=== PATIENT | male | born 1965 | race Caucasian/White ===

== ENCOUNTER 2019-09-01 15:27 | Emergency (ER) | payer OTHER, SELFPAY ==
[2019-09-01 15:29] VITALS: BP 122/83; PULSE 84; RESP 18; TEMP 35.8; O2SAT 99
[2019-09-01 15:42] LABS: Bacteria Urine None Seen
[2019-09-01 15:48] LABS: Appearance Urine UA CLEAR; Bilirubin Urine UA NEGATIVE (NEGATIVE); Color Urine UA YELLOW; Glucose Urine UA NEGATIVE (Negative); Ketones Urine UA NEGATIVE (NEGATIVE); Leukocyte Esterase Urine UA NEGATIVE (NEGATIVE); Nitrite Urine UA NEGATIVE (Negative); Occult Blood Urine UA 3+ (Negative); Protein Urine UA NEGATIVE (Negative); Specific Gravity Urine UA <=1.005 (1.000-1.035); Urobilinogen Urine UA 0.2 E.U./dL (0.2)
[2019-09-01 15:55] LABS: Culture Indicated Urine Cult Not Indicated; RBC Urine 30-100/HPF (0-5/HPF); Squamous Epithelial Cell Urine 0-1 /HPF (0-5/HPF); WBC Urine 0-1/HPF (0-5/HPF)
--- NOTE | 2019-09-01 17:03 | DI.CT.S_ITS ---
PROCEDURE: CT KIDNEY URETER BLADDER (KUB) INDICATIONS: RIGHT SIDE PAIN TECHNIQUE: Noncontrast 5 mm thick sections acquired from the diaphragms to the symphysis. 5 mm thick coronal and sagittal reformats were then performed. For radiation dose reduction, the following was used: automated exposure control, adjustment of mA and/or kV according to patient size. COMPARISON: None. FINDINGS: Image quality: Excellent. Lung bases: Lung bases are clear. Heart size is normal. Urinary system: There is a 2 mm stone at the right ureteral vesicle junction. There is trace right pelviectasis. Several nonobstructing right renal calculi measuring up to 4 mm. Tiny 1 mm left renal calculi are suspected. No left hydronephrosis. Both kidneys are normal in size. Mild right perinephric fat stranding. Both ureters appear non-dilated throughout their expected courses. Bladder wall is thickened. There is stranding around bladder consistent with cystitis. Prostate is enlarged. Other solid organs: Liver is normal in size. Gallbladder is normal. Pancreas is normal in contours. Spleen is normal in size. No adrenal nodules. Peritoneum and bowel: Appendix is not visualized. No secondary signs for acute appendicitis. Unenhanced bowel loops demonstrate normal wall thickness and caliber. No free fluid or air. Nodes and vessels: No retroperitoneal or mesenteric adenopathy by size criteria. Aorta and inferior vena cava are normal in caliber. Abdominal wall: No ventral hernias. Pelvis: No free pelvic fluid. No inguinal hernias or adenopathy. Multiple calcific densities in pelvis are compatible with pelvic phleboliths. Bones: No suspicious bony lesions. No vertebral body compression fractures. IMPRESSION: 1. A 2 mm stone at the left UVJ. There is trace right renal pelviectasis and mild right perinephric stranding. 2. Nephrolithiasis with small nobstructive stones bilaterally. 3. Thickening of bladder and stranding around bladder consistent with cystitis. 4. Enlarged prostate. Dictated by: Salvador Lowe M.D. on 09/01/2019 at 17:57 Approved by: Salvador Lowe M.D. on 09/01/2019 at 18:02
[2019-09-01] MEDS: KETOROLAC 60 MG/2 ML VIAL 30 MG IM (17:20)
[2019-09-01] MEDS: ACETAMINOPHEN 325 MG TABLET 650 MG PO (17:20)
--- NOTE | 2019-09-01 18:16 | ED_ITS ---
HPI - Male Genitourinary <NICHO Doshi - Last Filed: 09/02/19 01:26> General Chief complaint: Urogenital-Male Stated complaint: UNABLE TO PEE Time Seen by Provider: 09/01/19 16:50 Source: patient Mode of arrival: Ambulatory Limitations: no limitations History of Present Illness HPI Narrative: This is a 53-year-old male, prior smoker, who presents to ED with urinary frequency with small amount, urinary burning sensation, and right side/flank spasming discomfort for last 1.5 day. Patient states he voids every 5-10 minutes. Patient denies fever, chills, nausea or vomiting. Patient denies scrotal pain but reports feel something in scrotal area with urination. Patient denies penile discharge, concerns for STIs. Patient denies history of kidney stone, enlarged prostate, diabetes. Related Data Previous Rx's Medication Instructions Recorded hydrocodone-acetaminophen [[place]] 1 tab PO Q8H PRN #7 tab 09/01/19 sulfamethoxazole-trimethoprim 1 tab PO DAILY 7 Days tab 09/01/19 Review of Systems <NICHO Doshi - Last Filed: 09/02/19 01:26> Review of Systems Narrative: General: Denies fever, chills, fatigue, malaise, sweats. HEENT: Denies sinus pain, ear pain, sore throat, difficulty swallowing, dizziness. Respiratory: Denies dyspnea, cough, wheezing, hemoptysis, sputum. Cardiovascular: Denies chest pain, palpitations, orthopnea, edema. Gastrointestinal: Denies nausea, vomiting, abdominal pain, diarrhea, constipation, melena. : See HPI Musculoskeletal: Denies weakness, joint pain or bony pain. Skin: Denies rash, skin lesions, or other. Neurologic: Denies weakness, headache, numbness, change in speech, confusion, seizures, incoordination. Psychiatric: No concerning psychosocial issues. 12-point review of systems is negative except for those stated above. Patient History <NICHO Doshi - Last Filed: 09/02/19 01:26> Medical History (Updated 09/02/19 @ 01:20 by NICHO Doshi) No significant past medical history (Acute) Surgical History No pertinent past surgical history (Acute) Social History (Updated 09/02/19 @ 01:20 by NICHO Doshi) Smoking Status: Former smoker Exam <NICHO Doshi - Last Filed: 09/02/19 01:26> Narrative Exam Narrative: GEN: Alert, oriented x 3, well appearing and nourished, and in no acute distress. Head: Normal cephalic, atraumatic. No scalp or temporal tenderness, palpable mass or rash. EYES: Pupils are equal, round, and reactive to light and accommodation. Extraocular muscles are intact bilaterally. There is no subconjunctival hemorrhage, exudate and sclera non-icteric. ENT: Bilateral auditory canals and tympanic membranes clear. Hearing grossly intact. Nose without bleeding, purulent discharge or deviation. Facial sinuses nontender to palpate. Mucous membrane moist, no mucosal lesion. Throat without erythema, tonsillar hypertrophy or exudate. Uvula in midline, airway patent. Neck: Trachea in midline. No JVD, non-tender without lymphadenopathy. No masses or thyroid megaly. Supple, non-tender and no meningeal signs. CARDIAC: Normal regular rate and rhythm without murmurs, gallops, or rubs. No chest wall tenderness. No peripheral edema, cyanosis or pallor. Capillary refill is less than 2 seconds. RESPIRATORY: Lungs are clear to auscultate bilaterally. No cough, wheezes, rales, or rhonchi. No stridor, respiratory distress, increase work of breathing, or accessary muscle used. ABD: Abdomen soft, nontender and non-distended. No guarding or rebound tenderness to palpate. Bowel sounds are normal in all 4 quadrants. There is no palpable masses or organomegaly. EXT: Full painless ROM of all extremities with no loss of sensation, strength, effusion or edema. SKIN: Warm, dry, normal color for patient. No erythema, lesions or rash over visible areas. BACK: Nontender without deformity or crepitance. No flank tenderness. NEUROLOGICAL: Alert and oriented to place, time and person. Sensation and motor function intact bilaterally. No facial droops, dysphasia. PSYCHIATRIC: Good judgement and reason, without hallucinations, abnormal affect or abnormal behaviors during the examination. Initial Vital Signs Initial Vital Signs: Vital Signs Temperature 96.5 F L 09/01/19 15:29 Pulse Rate 84 09/01/19 15:29 Respiratory Rate 18 09/01/19 15:29 Blood Pressure 122/83 09/01/19 15:29 Pulse Oximetry 99 09/01/19 15:29 <Kelli Nails MD - Last Filed: 09/02/19 18:41> Initial Vital Signs Initial Vital Signs: Vital Signs Temperature 96.5 F L 09/01/19 15:29 Pulse Rate 84 09/01/19 15:29 Respiratory Rate 18 09/01/19 15:29 Blood Pressure 122/83 09/01/19 15:29 Pulse Oximetry 99 09/01/19 15:29 Scores <NICHO Doshi - Last Filed: 09/02/19 01:26> GCS Marisela coma scale eye opening: Spontaneous [place] coma scale verbal response: Orientated Marisela coma scale motor response: Obey commands [place] coma scale total score: 15 Course <NICHO Doshi - Last Filed: 09/02/19 01:26> Orders Ordered: Discontinued Medications Acetaminophen (Tylenol) 650 mg PO NOW ONE Stop: 09/01/19 17:05 Last Admin: 09/01/19 17:20 Dose: 650 mg Documented by: LUIS Ketorolac Tromethamine (Toradol) 30 mg IM NOW ONE Stop: 09/01/19 17:05 Last Admin: 09/01/19 17:20 Dose: 30 mg Documented by: LUIS Trimethoprim/Sulfamethoxazole (Bactrim Ds) 1 tab PO NOW ONE Stop: 09/01/19 18:32 Last Admin: 09/01/19 19:00 Dose: 1 tab Documented by: LUIS Vital Signs Vital signs: Vital Signs - 8 hr 09/01/19 15:29 Temperature 96.5 F L Pulse Rate 84 Respiratory Rate 18 Blood Pressure 122/83 Pulse Oximetry 99 <Kelli Nails MD - Last Filed: 09/02/19 18:41> Orders Ordered: Discontinued Medications Acetaminophen (Tylenol) 650 mg PO NOW ONE Stop: 09/01/19 17:05 Last Admin: 09/01/19 17:20 Dose: 650 mg Documented by: LUIS Ketorolac Tromethamine (Toradol) 30 mg IM NOW ONE Stop: 09/01/19 17:05 Last Admin: 09/01/19 17:20 Dose: 30 mg Documented by: LUIS Trimethoprim/Sulfamethoxazole (Bactrim Ds) 1 tab PO NOW ONE Stop: 09/01/19 18:32 Last Admin: 09/01/19 19:00 Dose: 1 tab Documented by: LUIS Vital Signs Vital signs: Vital Signs - 8 hr 09/01/19 15:29 Temperature 96.5 F L Pulse Rate 84 Respiratory Rate 18 Blood Pressure 122/83 Pulse Oximetry 99 MDM - Male Genitourinary <NICHO Doshi - Last Filed: 09/02/19 01:26> Differential Diagnosis Differential diagnosis: Likely urinary tract infection, acute retention of urine and other (Kidney stone, enlarged prostate) Medical Records Attestation: I reviewed the patient's medical records. Lab Data Attestation: I reviewed the patient's lab results. Labs: Lab Results 09/01/19 Range/Units 15:34 Urine Color Yellow Urine Appearance Clear Urine pH 6.0 (4.5-8.0) Ur Specific [place] <=1.005 (1.000-1.035) Urine Protein Negative (Negative) Urine Glucose (UA) Negative (Negative) g/dL Urine Ketones Negative (NEGATIVE) Urine Occult Blood 3+ H (Negative) Urine Nitrate Negative (Negative) Urine Bilirubin Negative (NEGATIVE) Urine Urobilinogen 0.2 (0.2) E.U./dL Ur Leukocyte Esterase Negative (NEGATIVE) Urine RBC 30-100/hpf H (0-5/HPF) Urine WBC 0-1/hpf (0-5/HPF) Ur Squamous Epith Cells 0-1 /hpf (0-5/HPF) Urine Bacteria None seen (None) Ur Culture Indicated? Cult not indicated Imaging Data CT-KUB: Radiologist's impression: [address] [address] [address] Scan Report Signed Patient: Kris Vazquez#: [id number] : 1965Acct:[id number] Age/Sex: 53 / MDate of Service: 09/01/19 Loc: ED Accession Number: [id number] Procedure: CT kidney ureter bladder (KUB) Ordering Provider: Mumtaz Ritchie PROCEDURE: CT KIDNEY URETER BLADDER (KUB) INDICATIONS: RIGHT SIDE PAIN TECHNIQUE: Noncontrast 5 mm thick sections acquired from the diaphragms to the symphysis. 5 mm thick coronal and sagittal reformats were then performed. For radiation dose reduction, the following was used: automated exposure control, adjustment of mA and/or kV according to patient size. COMPARISON: None. FINDINGS: Image quality: Excellent. Lung bases: Lung bases are clear. Heart size is normal. Urinary system: There is a 2 mm stone at the right ureteral vesicle junction. There is trace right pelviectasis. Several nonobstructing right renal calculi measuring up to 4 mm. Tiny 1 mm left renal calculi are suspected. No left hydronephrosis. Both kidneys are normal in size. Mild right perinephric fat stranding. Both ureters appear non- dilated throughout their expected courses. Bladder wall is thickened. There is stranding around bladder consistent with cystitis. Prostate is enlarged. Other solid organs: Liver is normal in size. Gallbladder is normal. Pancreas is normal in contours. Spleen is normal in size. No adrenal nodules. Peritoneum and bowel: Appendix is not visualized. No secondary signs for acute appendicitis. Unenhanced bowel loops demonstrate normal wall thickness and caliber. No free fluid or air. Nodes and vessels: No retroperitoneal or mesenteric adenopathy by size criteria. Aorta and inferior vena cava are normal in caliber. Abdominal wall: No ventral hernias. Pelvis: No free pelvic fluid. No inguinal hernias or adenopathy. Multiple calcific densities in pelvis are compatible with pelvic phleboliths. Bones: No suspicious bony lesions. No vertebral body compression fractures. IMPRESSION: 1. A 2 mm stone at the left UVJ. There is trace right renal pelviectasis and mild right perinephric stranding. 2. Nephrolithiasis with small nobstructive stones bilaterally. 3. Thickening of bladder and stranding around bladder consistent with cystitis. 4. Enlarged prostate. Dictated by: Salvador Lowe M.D. on 09/01/2019 at 17:57 Approved by: Salvador Lowe M.D. on 09/01/2019 at 18:02 MDM Narrative Medical decision making narrative: 53-year-old gentleman who has urinary frequency with urinary burning sensation and right side/flank discomfort for last 1.5 days. Patient denies constitutional symptoms, nausea or vomiting. Patient denies history of kidney stone or enlarged prostate in the past. Urine test shows 3+ blood without indications for infections. CT KUB was ordered given patient has no history of related disease and it showed a 2 mm kidney stone at right UVJ with thickening of bladder and stranding around the bladder consistent with cystitis and enlarged prostate. They were several nonobstructing small kidney stones without hydronephrosis. Findings were discussed with the patient and patient started on Septra DS for 7 day course for cystitis and advised to hydrate adequately to passed a stone. Patient advised to take [id number] Tylenol and or Motrin as needed for discomfort and small dose of [place] has been prescribed for severe pain. [place] medication precautions were discussed with the patient. Return precautions were discussed with the patient and advised to follow with PCP next few days. Patient verbalized understanding and agrees with the treatment plan. Urine culture is pending. <Kelli Nails MD - Last Filed: 09/02/19 18:41> Lab Data Labs: Lab Results 09/01/19 Range/Units 15:34 Urine Color Yellow Urine Appearance Clear Urine pH 6.0 (4.5-8.0) Ur Specific [place] <=1.005 (1.000-1.035) Urine Protein Negative (Negative) Urine Glucose (UA) Negative (Negative) g/dL Urine Ketones Negative (NEGATIVE) Urine Occult Blood 3+ H (Negative) Urine Nitrate Negative (Negative) Urine Bilirubin Negative (NEGATIVE) Urine Urobilinogen 0.2 (0.2) E.U./dL Ur Leukocyte Esterase Negative (NEGATIVE) Urine RBC 30-100/hpf H (0-5/HPF) Urine WBC 0-1/hpf (0-5/HPF) Ur Squamous Epith Cells 0-1 /hpf (0-5/HPF) Urine Bacteria None seen (None) Ur Culture Indicated? Cult not indicated Discharge Plan Departure Patient Disposition: Home Clinical Impression: Kidney stone on right side, Cystitis, Enlarged prostate Discharge Date/Time: 09/01/19 18:30 Instructions: DI for Kidney Stones, DI for Acute Cystitis Activity Restrictions/Additional Instructions: You have been diagnosed with [cystitis and kidney stone. Today's CT scan shows of 2 mm stone at the right ureteral vesicle junction and several nonobstructing right kidney store measuring up to 4 mm. There's also a 1 mm left kidney stone without hydronephrosis. There's mild right Lennie of phrenic fat stranding and thickened bladder wall indicating cystitis. Your prostate is enlarged as well. You are treated with antibiotic medications before discharged to home. Please complete a 7 day course of antibiotic medication. The urine is being cultured at this time and you'll get a phone call if you need different type of antibiotic medication]. What to do: *Take your medications as directed. You can take [id number] Tylenol and or Motrin as needed for discomfort. Tylenol up to 4000 mg in 24 hour period. Ibuprofen 600-800 mg 3 times a day with food as needed for pain. You were treated with Tylenol and Toradol injection while in ED and after you felt improved. Please take [place] only as needed for severe pain. This medication may cause drowsiness so please do not drive, drink alcohol or operate heavy equipments also this can cause constipation. Please increase your hydration and continue to be active to help with passing the stone. *Follow up with your primary care provider in 2-3 days, call for an appointment. Let them know you were seen in the ED and that we asked you to be seen in follow up. *Return to ED if you have any new, worsening, or concerning symptoms, such as [fever, chest pain, breathing difficulty, severe flank pain, unable to tolerate medications, dark blood in your urine, unable to empty her bladder or any acute concerns]. Prescriptions: New sulfamethoxazole-trimethoprim 800-160 mg tablet 1 tab PO DAILY 7 Days RF: 0 hydrocodone-acetaminophen [[place]] 5-325 mg tablet 1 tab PO Q8H PRN (Reason: pain) Qty: 7 RF: 0 Referrals: [facility] [Outside]
[2019-09-01] MEDS: TRIMETH/SULFA 160/800 (DS) TABLET 1 TAB PO (19:00)
== END 2019-09-01 18:30 | disposition home or self-care (01) ==
PROVIDERS: Emergency Medicine; Emergency Provider Nurse Practitioner Family
DX: N20.0 Calculus of kidney (principal); N30.90 Cystitis, unspecified without hematuria; N40.0 Benign prostatic hyperplasia without lower urinary tract symptoms
CPT/HCPCS: 74176; 81001; 87086; 96372; 99284; J1885